=== PATIENT | male | born 1960 | race Two or more races ===

== ENCOUNTER 2021-04-09 17:32 | Inpatient (IN) | payer BC, OTHER ==
[~2021-04-09] VITALS: Ht 175.3 cm; Wt 81.5 kg
[2021-04-09 17:57] LABS: Urine WBC None Seen /hpf (0 - 3)
[2021-04-09] MEDS ORDERED: SODIUM CHLORIDE 0.9% 500 ML IVB ONE (18:00)
[2021-04-09] MEDS ORDERED: ONDANSETRON HCL 4 MG/2 ML VIAL IV ONE (18:00)
[2021-04-09] MEDS ORDERED: MORPHINE SULFATE 4 MG/ML SYR/VIAL IV ONE (18:00)
[2021-04-09] MEDS ORDERED: PANTOPRAZOLE 40 MG/10 ML VIAL INJ IV ONE (18:00)
[2021-04-09 18:02] LABS: Urine Bacteria NONE SEEN /hpf (None Seen); Urine Blood Negative /uL (Negative)
[2021-04-09 18:57] LABS: Albumin 3.7 g/dL (3.4-5.0); BUN/Creatinine Ratio 20.9; Calcium 9.7 mg/dL (8.5-10.1); Potassium 3.8 mmol/L (3.5-5.1)
[2021-04-09 19:05] LABS: Bilirubin, Total 0.9 mg/dL (0.2-1.0); Total Protein 7.1 g/dL (6.4-8.2)
[2021-04-09 19:06] LABS: Basophils # (auto) 0 10 ^3/uL (0-0.2); Basophils % (auto) 0.3 % (0.0-2.0); Eosinophils # (auto) 0 10 ^3/uL (0-0.8); Eosinophils % (auto) 0.3 % (0.0-7.0); Hematocrit 40.9 % (41.0-53.0); Hemoglobin 14.1 g/dL (13.5-17.5); Lymphocytes # (auto) 0.7 10 ^3/uL (0.4-5.4); Mean Corpuscular Hgb Conc. 34.6 g/dL (32.0-36.0); Mean Corpuscular Volume 92.5 fL (80.0-100.0); Monocytes # (auto) 0.7 10 ^3/uL (0-1.3); Monocytes % (auto) 8.3 % (0.0-12.0); Neutrophils # (auto) 7.4 10 ^3/uL (1.6-8.6); Neutrophils % (auto) 83.1 % (37.0-80.0); Red Blood Cells 4.42 10^6/uL (4.5-5.90); Red Cell Distribution Width 15.4 % (11.8-14.3); White Blood Cell 8.9 10^3/uL (4.4-10.8)
[2021-04-09] MEDS ORDERED: ONDANSETRON HCL 4 MG/2 ML VIAL IV PRN (21:15)
[2021-04-09] MEDS ORDERED: NITROGLYCERIN 0.4 MG SL TAB SL PRN (21:15)
[2021-04-09] MEDS ORDERED: MORPHINE SULF INJ 2 MG/ML SYRINGE 1ML IV PRN (21:15)
[2021-04-09] MEDS: SODIUM CHLORIDE 0.9% 1,000 ML IV SCH (21:21)
[2021-04-09 22:00] VITALS: BP 146/72
[2021-04-09] MEDS: MORPHINE SULFATE 4 MG/ML SYR/VIAL IV PRN (23:19)
[2021-04-09 23:33] VITALS: BP 146/72
[2021-04-09] MEDS ORDERED: HYDR-4607 PO (23:45)
[2021-04-09] MEDS ORDERED: DULO20CA PO (23:45)
[2021-04-09] MEDS ORDERED: MONT10TA23 PO (23:45)
[2021-04-09] MEDS ORDERED: HYDR12.56 PO (23:45)
[2021-04-09] MEDS ORDERED: GABA600T PO (23:45)
[2021-04-09] MEDS ORDERED: BACL10TA PO (23:45)
[2021-04-09] MEDS ORDERED: FLUT1SPR5 (23:45)
[2021-04-10 04:58] LABS: Basophils # (auto) 0 10 ^3/uL (0-0.2); Basophils % (auto) 0.4 % (0.0-2.0); Eosinophils # (auto) 0.1 10 ^3/uL (0-0.8); Eosinophils % (auto) 1.2 % (0.0-7.0); Hematocrit 36.6 % (41.0-53.0); Hemoglobin 12.9 g/dL (13.5-17.5); Lymphocytes # (auto) 0.9 10 ^3/uL (0.4-5.4); Lymphocytes % (auto) 10.8 % (10.0-50.0); Mean Corpuscular Hemoglobin 32.2 pg (28.0-32.0); Mean Corpuscular Hgb Conc. 35.2 g/dL (32.0-36.0); Mean Corpuscular Volume 91.6 fL (80.0-100.0); Monocytes # (auto) 0.9 10 ^3/uL (0-1.3); Monocytes % (auto) 9.9 % (0.0-12.0); Neutrophils # (auto) 6.8 10 ^3/uL (1.6-8.6); Neutrophils % (auto) 77.7 % (37.0-80.0); Red Cell Distribution Width 15.4 % (11.8-14.3); White Blood Cell 8.8 10^3/uL (4.4-10.8)
[2021-04-10 05:00] VITALS: BP 125/69
[2021-04-10 05:15] LABS: Calcium 9.4 mg/dL (8.5-10.1); Potassium 3.9 mmol/L (3.5-5.1)
[2021-04-10 05:17] LABS: BUN/Creatinine Ratio 19.3
[2021-04-10 05:20] LABS: Bilirubin, Total 0.9 mg/dL (0.2-1.0); Total Protein 6.3 g/dL (6.4-8.2)
[2021-04-10] MEDS: MORPHINE SULFATE 4 MG/ML SYR/VIAL IV PRN ×4 (06:46→20:04)
[2021-04-10 09:00] VITALS: BP 119/63
[2021-04-10] MEDS ORDERED: PANTOPRAZOLE 40 MG/10 ML VIAL INJ IV SCH (10:00)
[2021-04-10] MEDS: SODIUM CHLORIDE 0.9% 1,000 ML IV SCH ×2 (10:00→20:04)
[2021-04-10 12:39] VITALS: BP 131/65
[2021-04-10 17:00] VITALS: BP 117/74
[2021-04-10 22:00] VITALS: BP 146/87
[2021-04-11] MEDS: MORPHINE SULFATE 4 MG/ML SYR/VIAL IV PRN ×5 (00:05→20:10)
[2021-04-11 05:00] VITALS: BP 121/69
[2021-04-11 05:42] LABS: Cholesterol 131 mg/dL (< 200); HDL Cholesterol 52 mg/dL (40-59); LDL Cholesterol 67 mg/dL (< 100); Triglycerides 109 mg/dL (< 150)
[2021-04-11] MEDS: SODIUM CHLORIDE 0.9% 1,000 ML IV SCH (06:22)
[2021-04-11 08:12] VITALS: BP 128/74
[2021-04-11] MEDS: PANTOPRAZOLE 40 MG TAB PO SCH (09:24)
[2021-04-11 12:46] VITALS: BP_SYST 118; BP_SYST 138; BP_DIAS 66; BP_DIAS 85
[2021-04-11 17:00] VITALS: BP 130/67
[2021-04-11 22:12] VITALS: BP 158/87
[2021-04-11] MEDS ORDERED: hydrALAZINE HCL 20 MG/ML VL IV ONE (23:15)
[2021-04-11] MEDS: HYDROcodone-ACET 5/325MG TAB PO PRN (23:29)
[2021-04-12] MEDS: HYDROcodone-ACET 5/325MG TAB PO PRN ×2 (03:48→08:54)
[2021-04-12 05:24] VITALS: BP 148/75
[2021-04-12] MEDS: PANTOPRAZOLE 40 MG TAB PO SCH (08:54)
[2021-04-12] MEDS ORDERED: HYDR-4072 PO (08:59)
[2021-04-12] MEDS ORDERED: PANT40T PO (10:39)
[2021-04-12 11:02] VITALS: BP 138/71
== END 2021-04-12 12:30 | disposition home or self-care (01) | DRG 440 ==
LOC: ER 17:32 → OVERFLOW 21:10 → WEST WING 22:12
PROVIDERS: ADMIT Nurse Practitioner; ATTEND Internal Medicine
DX: K85.90 Acute pancreatitis without necrosis or infection, unspecified (principal); I10 Essential (primary) hypertension; Z80.9 Family history of malignant neoplasm, unspecified; Z83.3 Family history of diabetes mellitus; Z98.1 Arthrodesis status; Z98.84 Bariatric surgery status; K21.9 Gastro-esophageal reflux disease without esophagitis; Z20.822 Contact with and (suspected) exposure to COVID-19
CPT/HCPCS: 36415; 74176; 80053; 80061; 81001; 83690; 83735; 85025; 87426; 93005; 96361; 96374; 96375; C9113; G0378; J2405